=== PATIENT | female | born 1970 | race Hispanic/Latino ===

== ENCOUNTER 2019-01-06 10:18 | Emergency (ER) | payer MEDICAID, OTHER ==
[2019-01-06 10:25] VITALS: BP 132/81
--- NOTE | 2019-01-06 11:57 | Emergency Department Report ---
ED Back Pain/Injury HPI - General Chief Complaint: Back Pain/Injury Stated Complaint: BACK CHRONIC PAIN Time Seen by Provider: 01/06/19 11:38 Source: patient Limitations: No Limitations - History of Present Illness Initial Comments: This is a 48-year-old female with a history of hypertension, depression and lumbar disc degenerative disease who presents to ED complaining of lower back pain that began this morning wash was done the shower. Patient states she felt like she heard a pop and sudden x-rays in excruciating pain on her lower back. Patient denies falling or injury to her back. Patient states she [place] the wrong way causing her pain. Patient states she has a neurology appointment with her doctor on February 15. Patient states she takes lisinopril Lexapro, Soma, Xanax for her medical conditions. Denies chest pain, shortness of breath, abdominal pain, loss sensation in legs extremities MD Complaint: back pain - Related Data Previous Rx's Medication Instructions Recorded Last Taken Type HYDROcodone/APAP 5-325 [[place] 1 each PO Q6HR PRN #10 tablet 01/06/19 Unknown Rx 5/325] Allergies Allergy/AdvReac Type Severity Reaction Status Date / Time No Known Allergies Allergy Verified 01/06/19 10:19 ED Review of Systems ROS: Stated complaint: BACK CHRONIC PAIN Other details as noted in HPI Comment: All other systems reviewed and negative ED Past Medical Hx - Past Medical History chronic back pain. degenerative disc disease ED Back Pain Physical Exam - Exam General: Vital signs noted. No distress. Alert and acting appropriately. Back/Abdomen: No Abdominal Tenderness, No Perithoracic Tenderness, No Perilumbar Tenderness, No Sacroiliac Tenderness, No Flank Tenderness, No Straight Leg Raise Pain Neuro: Yes Normal Sensation, Yes Normal DTR's, Yes Normal Gait, No Motor Weakness ED Course Vital Signs 01/06/19 10:23 Temperature 97.8 F Pulse Rate 106 H Respiratory 18 Rate Blood Pressure 132/81 O2 Sat by Pulse 97 Oximetry ED Medical Decision Making - Medical Decision Making 48-year-old female with acute on chronic back pain. Discussed the patient to keep rapport with her neurologist. Discussed heat therapy 3 times a day to the lower back. Discussed nausea his activities for the next couple of days. Discussed with patient to keep taking her blood pressure medications daily. [place] vital signs are normal patient is in no acute distress. Patient is ambulatory with a walker has no neurological deficit. Critical care attestation.: If time is entered above; I have spent that time in minutes in the direct care of this critically ill patient, excluding procedure time. ED Disposition Clinical Impression: Lumbar radiculopathy, chronic, Acute low back pain without sciatica Disposition: TO HOME OR SELFCARE Is pt being admited?: No Does the pt Need Aspirin: No Condition: Stable Instructions: Acute Low Back Pain (ED) Additional Instructions: Make sure to follow up with the primary care physician as discussed. Take all your medications as you've been prescribed. If you have any worsening symptoms or develop new symptoms please return to ED immediately. Prescriptions: HYDROcodone/APAP 5-325 [[place] 5/325] 1 each PO Q6HR PRN #10 tablet PRN Reason: Pain Referrals: LIVIA HACKETT MD [Staff Physician] - 3-5 Days Forms: Work/School Release Form Time of Disposition: 12:24
== END 2019-01-06 12:31 | disposition home or self-care (01) ==
LOC: ED 10:18
DX: G89.29 Other chronic pain (principal); M54.16 Radiculopathy, lumbar region